=== PATIENT | male | born 1945 | race Caucasian/White ===

== ENCOUNTER → 2017-02-24 | Outpatient (CLI) | payer OTHER | END | disposition home or self-care (01) | LOC: PCVCIMAG 10:03 | PROVIDERS: ATTEND Internal Medicine | DX: I25.10 Atherosclerotic heart disease of native coronary artery without angina pectoris (principal); I25.5 Ischemic cardiomyopathy; I10 Essential (primary) hypertension; E78.5 Hyperlipidemia, unspecified; I65.23 Occlusion and stenosis of bilateral carotid arteries; G47.33 Obstructive sleep apnea (adult) (pediatric); Z87.891 Personal history of nicotine dependence; Z79.82 Long term (current) use of aspirin | CPT/HCPCS: 80061; 93005; 93880; G0463 ==

== ENCOUNTER → 2019-02-15 | Outpatient (CLI) | payer OTHER ==
--- NOTE | 2019-02-15 14:41 | PCVCIMAG ---
APPROVED REPORT Indications Stenosis Risk Factors Hypertension: CAD Doppler Spectral Velocity Analysis PSV / EDVPSV / EDV ECA (R) 96 / 10 cm/sECA (L) 254 / 18 cm/s dICA (R) 92 / 21 cm/sdICA (L) 46 / 9 cm/s Mary (R) 92 / 11 cm/smICA (L) 226 / 42 cm/s pICA (R) 147 / 11 cm/spICA (L) 252 / 55 cm/s Bulb (R) 73 / 14 cm/sBulb (L) 81 / 8 cm/s dCCA (R) 90 / 0 cm/sdCCA (L) 96 / 14 cm/s mCCA (R) 99 / 13 cm/smCCA (L) 102 / 14 cm/s Vert (R) 53 / 10 cm/sVert (L) 41 / 6 cm/s ICA/CCA 1.49ICA/CCA 2.46 Basic Measurements Blood Pressure: Pulses: Right Left RightLeft Brachial(Sitting) 160/68krKt427/82mmHgTemporal Real Time B-Mode Imaging Vert. (R)AntegradeVert. (L)Antegrade Findings The right carotid bulb has moderate plaque. The right proximal internal carotid artery shows 40-50% stenosis. The right common carotid artery shows no significant stenosis. The right external carotid artery shows no significant stenosis. The left carotid bulb has severe calcified plaque. The left proximal internal carotid artery shows 70-90% stenosis. The left common carotid artery shows no significant stenosis. The left external carotid artery shows 70-90% stenosis. Conclusion 1. Right internal carotid artery stenosis (40-50%) 2. Left internal carotid artery stenosis (70-90%) 3. Antegrade vertebral flow. Significant progression of left internal carotid artery disease from a study dated February 2017. Reassess carotid duplex in 6 months
--- NOTE | 2019-02-15 14:52 | PCVCIMAG ---
APPROVED REPORT Study performed: 02/15/2019 13:33:11 Exam: Stress Echocardiogram Indication: CAD s/p DE, CAD s/p CABG, dyspnea, ischemic Cardiomyopathy Patient Location: Echo lab Stress Nurse: Itzel Rodriguez RN Status: routine Ht: 5 ft 9 in HR: 85 bpm BP: 158/82 mmHg Rhythm: NSR Procedure The patient underwent an Exercise Stress Test using the Andrea Protocol. Blood pressure, heart rate, and EKG were monitored. An Echocardiogram was performed by emissions testing and repair technician in four stages in quad fashion. At peak stress, four selected images were obtained and placed side by side with resting images for comparison. Stress Test Details Stress Test: Exercise stress testing was performed using a Andrea protocol. HR Resting HR: 85 bpmMax Heart Rate (APMHR): 146 bpm Max HR Achieved: 153 bpmTarget HR (85% APMHR): 124 bpm % of APMHR: 104 Recovery HR: 104 bpm HR response to stress: Normal HR response to stress BP Resting BP: 158/82 mmHg Max BP: 204/88 mmHg Recovery BP: 162/88 mmHg BP response to stress: Normal blood pressure response to stress. ECG Resting ECG: Sinus Rhythm, nonspecific ST-T abnormalities Stress ECG: Sinus Rhythm, nonspecific ST-T abnormalities ST Change: Normal Maximum ST Deviation: 0 mm Arrhythmia: isolated PVCs Recovery ECG: Sinus Rhythm, nonspecific ST-T abnormalities Recovery ST Change: Nondiagnostic resting ST abnormalities Recovery ST Deviation: 0 mm Recovery Arrhythmia: PVCs Clinical Reason for Termination: Dyspnea, Maximal effort Stress Symptoms: Dyspnea Exercise duration: 6 min sec Highest Stage Achieved: Stage 2: 2.5 mph at 12% grade. Exercise capacity: 7 METs Overall Exercise Capacity for Age: Average Scale: Sedentary Angina Score: None Stress ECG Conclusion Clinical: Non-ischemic ECG: Non-ischemic Oliveira Treadmill Score is 6.0 which is Low risk. Pre-Stress Echo The resting Echocardiogram showed normal left ventricular contractility with an estimated Ejection Fraction of about 45%. The resting Echocardiogram demonstrated wall motion abnormality in the basal inferoseptal and inferolateral larry. Post-Stress Echo The stress Echocardiogram showed labnormal left ventricular contractility with an estimated Ejection Fraction of about 60%. No new regional wall motion abnormalities Clinical No clinical or ECG evidence for ischemia. Conclusion Clinical Response: Non-ischemic Exercise Capacity: Average Stress ECG Response: Non-ischemic Stress Echo Images: Non-ischemic The left ventricle is normal in size and wall thickness in both the rest and stress images. Nonischemic stress echocardiogram with maximal exercise stress. 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 Nonischemic stress echocardiogram with maximal exercise stress. Prior inferolateral and inferobasal infarct; ejection fraction 45%
== END | disposition home or self-care (01) ==
LOC: PCVCIMAG 13:01
PROVIDERS: ATTEND Internal Medicine
DX: I65.23 Occlusion and stenosis of bilateral carotid arteries (principal); I25.10 Atherosclerotic heart disease of native coronary artery without angina pectoris; R06.00 Dyspnea, unspecified; I25.5 Ischemic cardiomyopathy; Z87.891 Personal history of nicotine dependence
CPT/HCPCS: 93325; 93351; 93880

== ENCOUNTER → 2019-05-14 | Outpatient (CLI) | payer OTHER | END | disposition home or self-care (01) | LOC: PCVCCLINIC 13:12 | PROVIDERS: ATTEND Internal Medicine | DX: I25.10 Atherosclerotic heart disease of native coronary artery without angina pectoris (principal); I25.5 Ischemic cardiomyopathy; I65.23 Occlusion and stenosis of bilateral carotid arteries; I10 Essential (primary) hypertension; E78.5 Hyperlipidemia, unspecified; R55 Syncope and collapse; E78.00 Pure hypercholesterolemia, unspecified | CPT/HCPCS: 36415; 80061; 93005; G0463 ==

== ENCOUNTER → 2019-08-30 | Outpatient (CLI) | payer OTHER | END | disposition home or self-care (01) | LOC: PCVCCLINIC 13:30 | PROVIDERS: ATTEND Internal Medicine | DX: I25.10 Atherosclerotic heart disease of native coronary artery without angina pectoris (principal); I25.5 Ischemic cardiomyopathy; I65.23 Occlusion and stenosis of bilateral carotid arteries; I10 Essential (primary) hypertension; E78.5 Hyperlipidemia, unspecified; F41.9 Anxiety disorder, unspecified; J45.909 Unspecified asthma, uncomplicated; Z90.49 Acquired absence of other specified parts of digestive tract; Z95.5 Presence of coronary angioplasty implant and graft; Z87.891 Personal history of nicotine dependence | CPT/HCPCS: 36415; 80061; 93005; G0463 ==